=== PATIENT | female | born 1975 | race Caucasian/White ===

== ENCOUNTER → 2024-05-04 15:09 | Outpatient (REF) | payer OTHER, SELFPAY | LOC: WDC 15:09 | PROVIDERS: ATTENDING PHYSICIAN Family Medicine | DX: Z12.31 Encounter for screening mammogram for malignant neoplasm of breast (principal) | CPT/HCPCS: 77063; 77067 ==

== ENCOUNTER → 2025-07-17 09:22 | Outpatient (REF) | payer BC, SELFPAY | LOC: WDC 09:22 | PROVIDERS: ATTENDING PHYSICIAN Family Medicine | DX: Z12.31 Encounter for screening mammogram for malignant neoplasm of breast (principal) | CPT/HCPCS: 77063; 77067 ==